=== PATIENT | male | born 1955 | race Caucasian/White ===

== ENCOUNTER 2021-07-01 08:54 | Emergency (ER) | payer OTHER ==
[2021-07-01 09:05] VITALS: BP 124/64; PULSE 98; TEMP 98.2; BMI 35.5
[2021-07-01] MEDS ORDERED: ONDANSETRON *ODT* 4 MG TABLET SL ONE (10:27)
[2021-07-01] MEDS ORDERED: MAG HYDROX/AL HYDROX/SIMETH 30 ML UNIT-DOSE CUP PO ONE (10:27)
[2021-07-01] MEDS ORDERED: FAMOTIDINE 20 MG TABLET PO ONE (10:27)
[2021-07-01] MEDS ORDERED: MAG HYDROX/AL HYDROX/SIMETH 30 ML UNIT-DOSE CUP ONE (10:34)
[2021-07-01] MEDS ORDERED: FAMOTIDINE 20 MG TABLET ONE (10:34)
[2021-07-01] MEDS ORDERED: ONDANSETRON *ODT* 4 MG TABLET ONE (10:34)
[2021-07-01 12:36] LABS: BASO % 0.6 % (0-2.0); HEMOGLOBIN 15.4 GM/dL (11.7-16.9); LYMPH % 11.3 % (8-40); MEAN CELL VOLUME 88.5 fl (80-96); MEAN PLT VOLUME 8.2 fl (7.5-11.1); MONO % 8.5 % (3.8-10.2); NEUT % 79.6 % (42.8-82.8); PLATELET COUNT 186 10^3/uL (134-434); RBC 4.97 M/mm3 (4.00-5.60); WHITE BLOOD COUNT 6.7 K/mm3 (4.0-10.0)
[2021-07-01 12:51] LABS: CHLORIDE 100 mmol/L (98-107); SODIUM 132 mmol/L (136-145)
[2021-07-01 12:53] LABS: ALBUMIN 3.9 g/dl (3.4-5.0); ANION GAP 8 MMOL/L (8-16); BLOOD UREA NITROGEN 16.2 mg/dL (7-18); CALCIUM 8.6 mg/dL (8.5-10.1); CO2 24 mmol/L (21-32); GLUCOSE,RANDOM 125 mg/dL (74-106); LIPASE 187 U/L (73-393)
[2021-07-01 12:56] LABS: CREATININE 1.3 mg/dL (0.55-1.3); SGOT/AST 32 U/L (15-37); SGPT/ALT 64 U/L (13-61)
[2021-07-01 12:58] LABS: BILIRUBIN,TOTAL 0.8 mg/dL (0.2-1); TOT PROT 8.2 g/dl (6.4-8.2)
[2021-07-01 12:59] LABS: ALK PHOS 86 U/L (45-117)
== END 2021-07-01 13:09 | disposition home or self-care (01) ==
LOC: JER 08:54
DX: B02.9 Zoster without complications (principal)
CPT/HCPCS: 36415; 80053; 83690; 84484; 85025; 93005; 93010; 99284-25; Q0162